=== PATIENT | female | born 1995 | race Caucasian/White ===

== ENCOUNTER 2024-09-23 20:38 | Emergency (ER) | payer MEDICAID, SELFPAY ==
[2024-09-23 20:39] VITALS: BMI 38.0
[2024-09-23 21:00] VITALS: BP 150/85; PULSE 70; RESP 18; TEMP 36.6; O2SAT 99
[2024-09-23 23:57] LABS: Strep A Rapid Negative (Negative)
--- NOTE | 2024-09-24 00:13 | EDNOTE_ITS ---
Upper Respiratory Inf. RME/HPI General Chief Complaint: General Adult/Misc Complain Stated Complaint: NOT FEELING WELL Time Seen by Provider: 09/23/24 22:49 Arrival date/time: 09/23/24 20:38 29F with history of drug use presents to ED with several days of cough and sore throat. Limitations: no limitations Related Data Previous Rx's ?Medication ?Instructions ?Recorded acetaminophen 500 mg capsule 1,000 mg (2 x 500 mg) PO Q8HR PRN 12/26/20 pain #60 caps ibuprofen 800 mg tablet 800 mg PO TID PRN pain #30 tabs 12/26/20 ibuprofen 800 mg tablet 800 mg PO TID PRN pain #30 tabs 09/16/21 albuterol sulfate 90 mcg/actuation 2 puff inhalation Q6H PRN 08/24/22 aerosol inhaler (Ventolin HFA) shortness of breath or wheezing #8.5 grams promethazine-DM 6.25 mg-15 mg/5 mL 5 ml PO Q6H PRN cough #240 mL 08/24/22 oral syrup mupirocin 2 % topical ointment 1 applic topical BID #22 grams 03/01/23 amoxicillin 500 mg capsule 500 mg PO Q12H #14 caps 03/14/23 acetaminophen 650 mg 650 mg PO Q8H PRN fever or pain 09/15/23 tablet,extended release (Tylenol 8 #30 tabs Hour) ibuprofen 600 mg tablet 600 mg PO Q8H PRN fever or pain 09/15/23 #30 tabs Allergies Allergy/AdvReac Type Severity Reaction Status Date / Time latex Allergy Severe Hives Verified 09/23/24 20:40 Review of Systems Review of Systems Systems Reviewed: All systems reviewed, normal except as documented Constitutional Constitutional: Reports system reviewed and no additional complaints, except as documented, Denies fever(s) and Denies headache(s) ENT Ears, Nose, Mouth, and Throat: Reports as per HPI, Denies disequilibrium, Denies headache(s) and Reports sore throat Cardiovascular Cardiovascular: Reports system reviewed and no additional complaints, except as documented, Denies chest pain and Denies dyspnea Respiratory Respiratory: Reports system reviewed and no additional complaints, except as documented, Reports as per HPI, Reports cough and Denies dyspnea Gastrointestinal Gastrointestinal: Reports system reviewed and no additional complaints, except as documented, Denies abdominal pain, Denies nausea and Denies vomiting Neurologic Neurologic: Reports system reviewed and no additional complaints, except as docu mented, Denies confusion, Denies disequilibrium and Denies headache(s) Psychiatric Psychiatric: Denies confusion Past Medical History Past Medical History CARDIAC: Negative Cardiac Disorders or Congestive Heart Failure RESPIRATORY: Negative Chronic Obstructive Pulmonary Disease (COPD) or Asthma GENITOURINARY: Negative Renal Disease ENDOCRINE: Negative Diabetes Mellitus Type 1 or Diabetes Mellitus Type 2 HEMATOLOGIC: Negative Sickle Cell Disease OTHER HISTORY: Negative Blood Transfusions Social History SMOKING STATUS: Never smoker ED Exam General Limitations: Present no limitations General appearance: Present alert and in no apparent distress Head Head exam: Present atraumatic Eye Eye exam: Present normal appearance, PERRL and EOMI ENT ENT exam: Present normal exam, normal oropharynx and mucous membranes moist Neck Neck exam: Present normal inspection, full ROM and trachea midline Chest Chest inspection: Present normal inspection and symmetric chest wall rise Respiratory Respiratory exam: Present normal lung sounds bilaterally Cardiovascular Cardiovascular exam: Present regular rate, normal rhythm and normal heart sounds Abdominal Exam Abdominal exam: Present soft and normal bowel sounds Extremities Exam Extremities exam: Present normal inspection and full ROM Back Exam Back exam: Present normal inspection and full ROM Neurological Exam Neurological exam: Present alert, oriented X3 and CN II-XII intact Psychiatric Psychiatric exam: Present normal affect and normal mood Skin Skin exam: Present warm, dry, intact and normal color Course Quality Measures none Orders Category Date Time Status Bedside Influenza A&B Antigen Test NOW Care 09/23/24 21:01 Completed Strep A Rapid Stat Lab 09/23/24 22:52 Completed Vital Signs Vital signs: Vital Signs Temperature 98 F 09/23/24 21:00 Pulse Rate 70 09/23/24 21:00 Respiratory Rate 18 09/23/24 21:00 Blood Pressure 150/85 H 09/23/24 21:00 Pulse Oximetry (%) 99 09/23/24 21:00 Oxygen Delivery Method Room Air 09/23/24 21:00 O2 at 99% on RA and WNLs Upper Respiratory Infection MDM Narrative MDM Narrative:: 29F with history of drug use presents to ED with several days of cough and sore throat. Physical exam reveals red oropharynx, but otherwise clear ENT and lungs. Patient is afebrile, calm, and alert. Swabs neg. Likely viral URI. Patient eloped prior to DC. Patient data External records reviewed:: [facility] previous records Clinical information provided by:: patient Social determinants that could affect healthcare access:: substance use Patient has the following chronic illnesses:: drug use How is presenting disease/condition affected by chronic disease/condition?: exacerbated by Evaluation data The following diagnostics were reviewed and interpreted by me:: lab results Lab and/or radiology exams considered but not ordered:: ordered Interpretation Summary: above Medications / Prescriptions Medications or Prescriptions considered but not ordered:: not ordered Medication administrations:: n/a Consultations Consultation(s) initiated? (list below): No Diagnosis Upper Respiratory Differential Diagnosis: upper respiratory infection, croup, otitis media, sinusitis, viral infection, bronchitis, influenza and pharyngitis Most likely diagnosis given after review of the tests above:: URI Admission Indicated Admission indicated?: not indicated Admission Request Was there a request for admission?: No Disposition Plan Disposition Plan: other (specify) (eloped) Discharge Plan Plan Patient Disposition: Elopement Prescriptions/Referrals Prescriptions/Med Rec: No Action ibuprofen 800 mg tablet 800 mg PO TID PRN (Reason: pain) Qty: 30 0RF acetaminophen 500 mg capsule 1,000 mg PO Q8HR PRN (Reason: pain) Qty: 60 0RF ibuprofen 800 mg tablet 800 mg PO TID PRN (Reason: pain) Qty: 30 0RF promethazine-DM 6.25-15 mg/5 mL syrup 5 ml PO Q6H PRN (Reason: cough) Qty: 240 0RF albuterol sulfate [Ventolin HFA] 90 mcg/actuation HFA aerosol inhaler 2 puff inhalation Q6H PRN (Reason: shortness of breath or wheezing) Qty: 8.5 0RF acetaminophen [Tylenol 8 Hour] 650 mg tablet extended release 650 mg PO Q8H PRN (Reason: fever or pain) Qty: 30 0RF ibuprofen 600 mg tablet 600 mg PO Q8H PRN (Reason: fever or pain) Qty: 30 0RF mupirocin 2 % ointment 1 applic topical BID Qty: 22 0RF amoxicillin 500 mg capsule 500 mg PO Q12H Qty: 14 0RF Problem List Clinical Impression: URI (upper respiratory infection) Patient/Caregiver Discharge Instructions Print Language: Italian Stand Alone Forms: Patient Portal Info Letter PA/CERTIFIED CAREGIVER Supervising Physician RALPH/PATRIA Supervising Physician: Dr. Ocasio
== END 2024-09-24 00:15 | disposition left against medical advice (07) ==
LOC: SERX 09-24 00:12
PROVIDERS: Physician Assistant; Emergency Provider Emergency Medicine
DX: J06.9 Acute upper respiratory infection, unspecified (principal); Z53.29 Procedure and treatment not carried out because of patient's decision for other reasons
CPT/HCPCS: 87400; 87651; 99283